=== PATIENT | female | born 1990 | race American Indian/Alaskan Native ===

== ENCOUNTER 2017-11-18 08:47 | Inpatient (IN) | payer MEDICAID ==
[2017-11-18] MEDS ORDERED: ZOFRAN IV PRN (09:52)
[2017-11-18] MEDS ORDERED: SUBLIMAZE IV PRN (09:52)
[2017-11-18] MEDS ORDERED: BRETHINE SUB-Q PRN (09:52)
[2017-11-18] MEDS ORDERED: ePHEDrine SULFATE IV PRN (09:52)
[2017-11-18] MEDS ORDERED: POLYCILLIN/NS 2 GM/100 ML 2 GM/100 ML BAG IV ONE (09:52)
[2017-11-18] MEDS ORDERED: XYLOCAINE 2% INFILTRATI ONE (09:52)
[2017-11-18] MEDS ORDERED: MINERAL OIL PO PRN (09:52)
[2017-11-18] MEDS ORDERED: PITOCin/NS 20 UNIT/1000ML DRIP 20 UNITS/1,000 ML BAG IV SCH (10:00)
--- NOTE | 2017-11-18 10:22 | History and Physical Report ---
History of Present Illness Date of examination: 11/18/17 (IOL for IUGR) Date of admission: 11/18/17 08:47 History of present illness: EDC Confirmation: 11/28/2017 Gestational Age: 25 4/7 weeks Past History : 2 Term Births: 1 Premature Births: 0 Living Children: 1 Para: 1 Mult. Births: 0 Prev : 0 Prev. attempt? 0 Aborta: 0 Elect. Ab: 0 Spont. Ab: 0 Ectopics: 0 # 1 Delivery date: 02/2016 Weeks Gestation: term Delivery type: Anesthesia type: epidural [place] [facility] [place] Sex: Female weight: 7# Comments: denies complications Risk Factors: Smoked Tobacco Use: Never smoker Smokeless Tobacco Use: Never Passive smoke exposure: no Drug use: no HIV high-risk behavior: low risk Alcohol use: no Exercise: no Seatbelt use: 100 % Family History Risk Factors: Family History of [place] in females < 65 years old: no Family History of [place] in males < 55 years old: no Dietary Counseling: pn yes Past Medical History: Abnormal Pap Smear "they have all been abnormal - I don't know what for" Past Surgical History: Breast Lumpectomy: cyst removed from right brest age 15 Past Medical History 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 of genital herpes: no Partner hx. of genital herpes: no Rash, Viral, or Febrile illness since last LMP? no Varicella/Chicken Pox Status: Previous Disease TB Risk: no Genetic History Congenital Heart Defect: Mom: no Dad: no Dana Disease: Mom: no Dad: no Thalassemia Mom: no Dad: no Neural Tube Defect Mom: no Dad: no Down's Syndrome Mom: no Dad: no James-Sachs Mom: no Dad: no Sickle Cell Disease/Trait Mom: no Dad: no Hemophilia Mom: no Dad: no Muscular Dystrophy Mom: no Dad: no Cystic Fibrosis Mom: no Dad: no [place] Chorea Mom: no Dad: no Mental Retardation Mom: no Dad: no Fragile X Mom: no Dad: no Other Genetic/Chromosomal Disorder Mom: no Dad: no Child w/other defect Mom: no Dad: no Enviromental Exposures Xray Exposure: no Medication, drug, or alcohol use since LMP: no Chemical/Other Exposure: no Exposure to Cat Liter: no Hx of Parvovirus (Fifth Disease): no Occupational Exposure to Children: none Active Medications (reviewed today): None Current Allergies: No known allergies Laboratory Results Date/Time Collected: 08/19/2017 Routine Urinalysis Leukocytes: negative Nitrite: negative Urobilinogen: negative Protein: negative Blood: negative Ketone: negative Bilirubin: negative Glucose: negative Urine HCG: positive Review of Systems General Denies fever, chills, sweats, anorexia, fatigue, weakness, malaise, weight loss and sleep disorder. Denies nausea, vomiting, headache, swelling of legs, abdominal pain, vaginal discharge, vaginal bleeding and contractions. Complains of painful sex. Denies vaginal discharge, incontinence, dysuria, hematuria, urinary frequency, amenorrhea, menorrhagia, abnormal vaginal bleeding, pelvic pain, genital sores, decreased libido, painful periods, urinary urgency, hot flashes, vaginal dryness, vaginal itching and vaginal odor. CV Denies chest pains, palpitations, syncope, dyspnea on exertion, orthopnea, PND and peripheral edema. Resp Denies cough, dyspnea at rest, excessive sputum, hemoptysis, wheezing and pleurisy. GI Denies nausea, vomiting, diarrhea, constipation, change in bowel habits, abdominal pain, melena, hematochezia, jaundice, gas/bloating, indigestion/ heartburn, dysphagia and odynophagia. Endo Denies cold intolerance, heat intolerance, polydipsia, polyphagia, polyuria and unusual weight change. Breast Denies left breast lump, right breast lump, nipple discharge, bloody discharge from nipple, breast pain, abnormal mammogram and breast enlargement. MS Denies back pain, joint pain, joint swelling, muscle cramps, muscle weakness, stiffness, arthritis, sciatica, restless legs, leg pain at night and leg pain with exertion. Derm Denies rash, itching, dryness and suspicious lesions. Neuro Denies paralysis, paresthesias, headache, seizures, tremors, vertigo, transient blindness, frequent falls, frequent headaches and difficulty walking. Psych Denies depression, anxiety, irritability and mood swings. Eyes Denies blurring, diplopia, irritation, discharge, vision loss, eye pain and photophobia. ENT Denies earache, ear discharge, tinnitus, decreased hearing, nasal congestion, nosebleeds, sore throat and hoarseness. Allergy Denies urticaria, allergic rash, hay fever and recurrent infections. Heme Denies abnormal bruising, bleeding and enlarged lymph nodes. 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 Vulva/Vagina: No lesions, normal BUS, normal rugae thick plaques of white yeast noted, Cervix: No lesions; no cervical motion tenderness Uterus: normal size and position, midline, mobile Fundal Ht: 25 size: AGA FHT: + Adnexae: no masses or tenderness Rectovaginal: no masses or tenderness Past History - Obstetrical History Expected Date of Delivery: 11/28/17 Actual Gestation: 38 Week(s) 4 Day(s) : 2 Para: 1 Number of Living Children: 1 Medications and Allergies Allergies Allergy/AdvReac Type Severity Reaction Status Date / Time metoclopramide [From Reglan] Allergy Unknown Verified 11/18/17 11:00 Home Medications Medication Instructions Recorded Confirmed Last Taken Type Multivitamin Tablet 1 tab PO DAILY 11/18/17 11/18/17 11/17/17 10:00 History Valacyclovir HCl 500 mg PO DAILY 11/18/17 11/18/17 11/17/17 History Active Meds: Active Medications Ephedrine Sulfate (Ephedrine Sulfate) 10 mg IV Q2M PRN PRN Reason: Hypotension Fentanyl (Sublimaze) 100 mcg IV Q2H PRN PRN Reason: Labor Pain Ampicillin Sodium (Ampicillin/Ns 1 Gm/50 Ml) 1 gm in 50 mls @ 100 mls/hr IV Q4HR OLIVER; Protocol Ampicillin Sodium (Polycillin/Ns 2 Gm/100 Ml) 2 gm in 100 mls @ 100 mls/hr IV ONCE ONE; Protocol Stop: 11/18/17 10:51 Lactated Ringer's (Lactated Ringers) 1,000 mls @ 125 mls/hr IV DIRECT OLIVER Oxytocin/Sodium Chloride (Pitocin/Ns 20 Unit/1000ml Drip) 20 units in 1,000 mls @ 125 mls/hr IV DIRECT OLIVER Oxytocin/Sodium Chloride (Pitocin/Ns 30 Unit/500ml) 30 units in 500 mls @ 4 mls /hr IV Q30M OLIVER; Protocol Lidocaine (Xylocaine 2%) 20 ml INFILTRATI ONCE ONE Stop: 11/18/17 09:53 Mineral Oil (Mineral Oil) 30 ml PO QHS PRN PRN Reason: Constipation Ondansetron HCl (Zofran) 4 mg IV Q8H PRN PRN Reason: Nausea And Vomiting Terbutaline Sulfate (Brethine) 0.25 mg SUB-Q ONCE PRN PRN Reason: Hyperstimulation/Hypertonicity - Physical Exam Breasts: Positive: deferred Cardiovascular: Regular rate, Normal S1, Normal S2 Lungs: Positive: Normal air movement Abdomen: Positive: normal appearance, soft, normal bowel sounds. Negative: distention, tenderness Genitourinary (Female): Positive: normal external genitalia Vulva: both: normal Vagina: Positive: normal moisture. Negative: discharge Cervix: Negative: lesion, discharge Uterus: Positive: normal size, normal contour Adnexa: both: normal Anus/Rectum: Positive: normal perianal skin, heme negative. Negative: rectal mass, hemorrhoids Extremities: Deep Tendon Reflex Grade: Normal +2 - Obstetrical FHR: category 1 Uterine Contraction Monitor Mode: External Cervical Dilatation: 0 (RN called unable to eval cervix posterior) Uterine Contraction Pattern: Absent Uterine Tone Measurement Phase: Resting Results Result Diagrams: 11/18/17 09:15 All other labs normal. Strep Gp B CHARLIE [A] Positive Current OB Labs Blood Type: A (06/27/2017) Rh Type: positive (06/27/2017) Rh Antibody Screen: negative (06/27/2017) Hgb: 11.2 (06/27/2017) Hct: 34.9 (06/27/2017) Platelets: 253 (06/27/2017) Rubella: immune (06/27/2017) RPR: nonreactive (06/27/2017) Hep B Surface Antigen: negative (06/27/2017) HIV: negative (06/27/2017) Quad Screen AFP: negative (06/27/2017) Optional Labs Hepatitis C: neg (06/27/2017) Assessment and Plan 27yo @ 38w4d for IOL due to IUGR. 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 GBS+ will treat per protocol when in labor. All orders in EMR - Patient Problems (1) Group B Streptococcus carrier state affecting Onset Date: ~11/18/17 Current Visit: Yes Status: Acute Plan to address problem: Ampicillin per protocol when in active labor (2) HSV-2 seropositive Current Visit: Yes Status: Acute Plan to address problem: Pt was given RX for prophylactic Valtrex since 35 weeks (3) IUGR (intrauterine growth restriction) Onset Date: Unknown Current Visit: Yes Status: Acute Plan to address problem: As per [facility] recommendation Noted in phone note below IOL recommended. Call placed by: Nancy Roach [facility], November 05, 2017 12:42 PM Call placed to: [facility] Summary of Call: per 's request a call was placed to confirm POC for this pt 1. pt was incorrectly dx with PPROM; it was Oligo which has now resolved last ELENI 12 2. delivery is recommended between 38-39 weeks due to IUGR last eval BPP 02/[address] Information relayed to and Pt. L&D called IOL [facility] for 11-18-17 @ 0868 Pt will be 38w4d that day
[2017-11-18 10:53] LABS: Hematocrit 32.4 % (30.3-42.9); Mean Corpuscular HGB Conc 34 % (30-34); Mean Corpuscular Hemoglobin 29 pg (28-32); Mean Corpuscular Volume 86 fl (79-97); Platelet Count 193 K/mm3 (140-440); Red Blood Count 3.76 M/mm3 (3.65-5.03); Red Cell Distribution Width 14.5 % (13.2-15.2)
[2017-11-18] MEDS: LACTATED RINGERS 1,000 ML IV SCH ×2 (11:45→19:28)
[2017-11-18] MEDS: PITOCin/NS 30 UNIT/500ML 30 UNITS/500 ML BAG IV SCH ×3 (11:57→13:29)
--- NOTE | 2017-11-18 12:06 | Progress Note ---
Assessment and Plan Pitocin just started. RN states she was unable to eval cervix due to position of cervix. Pt aware IOL may take several days. All questions addressed. Cervix midposition. SVE 1-2,50,-2. - Patient Problems (1) Group B Streptococcus carrier state affecting Onset Date: ~11/18/17 Current Visit: Yes Status: Acute (2) HSV-2 seropositive Current Visit: Yes Status: Acute (3) IUGR (intrauterine growth restriction) Onset Date: Unknown Current Visit: Yes Status: Acute Subjective - Subjective Date of service: 11/18/17 (pit just started) Principal diagnosis: IUP 38w4d IOL for IUGR Interval history: EDC Confirmation: 11/28/2017 Gestational Age: 25 4/7 weeks Past History : 2 Term Births: 1 Premature Births: 0 Living Children: 1 Para: 1 Mult. Births: 0 Prev : 0 Prev. attempt? 0 Aborta: 0 Elect. Ab: 0 Spont. Ab: 0 Ectopics: 0 # 1 Delivery date: 02/2016 Weeks Gestation: term Delivery type: Anesthesia type: epidural [place] [facility] [place]: Female weight: 7# Comments: denies complications Risk Factors: Smoked Tobacco Use: Never smoker Smokeless Tobacco Use: Never Passive smoke exposure: no Drug use: no HIV high-risk behavior: low risk Alcohol use: no Exercise: no Seatbelt use: 100 % Family History Risk Factors: Family History of [place] in females < 65 years old: no Family History of [place] in males < 55 years old: no Dietary Counseling: pn yes Past Medical History: Abnormal Pap Smear "they have all been abnormal - I don't know what for" Past Surgical History: Breast Lumpectomy: cyst removed from right brest age 15 Past Medical History 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 of genital herpes: no Partner hx. of genital herpes: no Rash, Viral, or Febrile illness since last LMP? no Varicella/Chicken Pox Status: Previous Disease TB Risk: no Genetic History Congenital Heart Defect: Mom: no Dad: no Dana Disease: Mom: no Dad: no Thalassemia Mom: no Dad: no Neural Tube Defect Mom: no Dad: no Down's Syndrome Mom: no Dad: no James-Sachs Mom: no Dad: no Sickle Cell Disease/Trait Mom: no Dad: no Hemophilia Mom: no Dad: no Muscular Dystrophy Mom: no Dad: no Cystic Fibrosis Mom: no Dad: no [place] Chorea Mom: no Dad: no Mental Retardation Mom: no Dad: no Fragile X Mom: no Dad: no Other Genetic/Chromosomal Disorder Mom: no Dad: no Child w/other defect Mom: no Dad: no Enviromental Exposures Xray Exposure: no Medication, drug, or alcohol use since LMP: no Chemical/Other Exposure: no Exposure to Cat Liter: no Hx of Parvovirus (Fifth Disease): no Occupational Exposure to Children: none Active Medications (reviewed today): None Current Allergies: No known allergies Laboratory Results Date/Time Collected: 08/19/2017 Routine Urinalysis Leukocytes: negative Nitrite: negative Urobilinogen: negative Protein: negative Blood: negative Ketone: negative Bilirubin: negative Glucose: negative Urine HCG: positive Review of Systems General Denies fever, chills, sweats, anorexia, fatigue, weakness, malaise, weight loss and sleep disorder. Denies nausea, vomiting, headache, swelling of legs, abdominal pain, vaginal discharge, vaginal bleeding and contractions. Complains of painful sex. Denies vaginal discharge, incontinence, dysuria, hematuria, urinary frequency, amenorrhea, menorrhagia, abnormal vaginal bleeding, pelvic pain, genital sores, decreased libido, painful periods, urinary urgency, hot flashes, vaginal dryness, vaginal itching and vaginal odor. CV Denies chest pains, palpitations, syncope, dyspnea on exertion, orthopnea, PND and peripheral edema. Resp Denies cough, dyspnea at rest, excessive sputum, hemoptysis, wheezing and pleurisy. GI Denies nausea, vomiting, diarrhea, constipation, change in bowel habits, abdominal pain, melena, hematochezia, jaundice, gas/bloating, indigestion/ heartburn, dysphagia and odynophagia. Endo Denies cold intolerance, heat intolerance, polydipsia, polyphagia, polyuria and unusual weight change. Breast Denies left breast lump, right breast lump, nipple discharge, bloody discharge from nipple, breast pain, abnormal mammogram and breast enlargement. MS Denies back pain, joint pain, joint swelling, muscle cramps, muscle weakness, stiffness, arthritis, sciatica, restless legs, leg pain at night and leg pain with exertion. Derm Denies rash, itching, dryness and suspicious lesions. Neuro Denies paralysis, paresthesias, headache, seizures, tremors, vertigo, transient blindness, frequent falls, frequent headaches and difficulty walking. Psych Denies depression, anxiety, irritability and mood swings. Eyes Denies blurring, diplopia, irritation, discharge, vision loss, eye pain and photophobia. ENT Denies earache, ear discharge, tinnitus, decreased hearing, nasal congestion, nosebleeds, sore throat and hoarseness. Allergy Denies urticaria, allergic rash, hay fever and recurrent infections. Heme Denies abnormal bruising, bleeding and enlarged lymph nodes. 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 Vulva/Vagina: No lesions, normal BUS, normal rugae thick plaques of white yeast noted, Cervix: No lesions; no cervical motion tenderness Uterus: normal size and position, midline, mobile Fundal Ht: 25 size: AGA FHT: + Adnexae: no masses or tenderness Rectovaginal: no masses or tenderness Patient reports: movement normal Objective - Vital Signs Vital Signs: Vital Signs - 12hr 11/18/17 11:15 Temperature 97.6 F Pulse Rate 88 Respiratory 14 Rate Blood Pressure 117/65 [Left] O2 Sat by Pulse 98 Oximetry - Exam Breasts: deferred Cardiovascular: Regular rate Lungs: Normal air movement Abdomen: Present: normal appearance, soft, normal bowel sounds. Absent: distention, tenderness Uterus: Present: normal FHR: auscultation normal, category 1 Uterine Contraction Monitor Mode: External Cervical Dilatation: 1.5 (cervix midposition) Cervical Effacement Percentage: 50 station: -2 Uterine Contraction Pattern: Absent Uterine Tone Measurement Phase: Resting Extremities: normal Deep Tendon Reflex Grade: Normal +2 - Labs Labs: Laboratory Results - last 24 hr 11/18/17 11/18/17 09:15 09:15 WBC 9.9 RBC 3.76 Hgb 11.0 Hct 32.4 MCV 86 MCH 29 MCHC 34 RDW 14.5 Plt Count 193 Blood Type A POSITIVE Antibody Screen Negative
[2017-11-18] MEDS ORDERED: AMPICILLIN/NS 1 GM/50 ML 1 GM/50 ML BAG IV SCH (13:53)
--- NOTE | 2017-11-18 14:47 | Progress Note ---
Assessment and Plan - Patient Problems (1) 38 weeks gestation of Current Visit: Yes Status: Acute (2) Group B Streptococcus carrier state affecting Onset Date: ~11/18/17 Current Visit: Yes Status: Acute (3) HSV-2 seropositive Current Visit: Yes Status: Chronic Plan to address problem: states no outbreak or prodromal symptoms (4) IUGR (intrauterine growth restriction) Onset Date: Unknown Current Visit: Yes Status: Acute Plan to address problem: Serial induction explained, will continue pitocin for now, cervidil tonight if no cervical change and stable. Subjective - Subjective Date of service: 11/18/17 Principal diagnosis: IUP 38w4d IOL for IUGR Patient reports: movement normal Objective - Vital Signs Vital Signs: Vital Signs - 12hr 11/18/17 11/18/17 11/18/17 11:15 13:31 13:36 Temperature 97.6 F Pulse Rate 88 69 83 Respiratory 14 Rate Blood Pressure Blood Pressure 117/65 [Left] O2 Sat by Pulse 98 98 97 Oximetry 11/18/17 11/18/17 11/18/17 13:41 13:43 13:46 Temperature Pulse Rate 75 78 86 Respiratory Rate Blood Pressure 108/52 106/58 Blood Pressure [Left] O2 Sat by Pulse 97 96 Oximetry 11/18/17 11/18/17 11/18/17 13:51 13:56 14:01 Temperature Pulse Rate 68 75 63 Respiratory Rate Blood Pressure Blood Pressure [Left] O2 Sat by Pulse 97 99 98 Oximetry 11/18/17 11/18/17 11/18/17 14:06 14:11 14:16 Temperature Pulse Rate 71 72 72 Respiratory Rate Blood Pressure Blood Pressure [Left] O2 Sat by Pulse 97 98 97 Oximetry 11/18/17 11/18/17 11/18/17 14:21 14:26 14:31 Temperature Pulse Rate 68 80 81 Respiratory Rate Blood Pressure Blood Pressure [Left] O2 Sat by Pulse 98 97 97 Oximetry 11/18/17 11/18/17 14:36 14:41 Temperature Pulse Rate 70 73 Respiratory Rate Blood Pressure Blood Pressure [Left] O2 Sat by Pulse 98 99 Oximetry - Labs Labs: Laboratory Results - last 24 hr 11/18/17 11/18/17 11/18/17 09:15 09:15 09:15 WBC 9.9 RBC 3.76 Hgb 11.0 Hct 32.4 MCV 86 MCH 29 MCHC 34 RDW 14.5 Plt Count 193 RPR Nonreactive Blood Type A POSITIVE Antibody Screen Negative
[2017-11-18] MEDS ORDERED: AMBIEN PO PRN (18:29)
--- NOTE | 2017-11-18 18:31 | Event Note ---
Date: 11/18/17 (pitocin stopped) Pt agrees with plan. Stop Pitocin for today, PM care and diet. Cervidil ordered for 1900. All questions addressed.
[2017-11-18] MEDS ORDERED: CERVIDIL VG ONE (19:00)
--- NOTE | 2017-11-19 07:57 | Progress Note ---
Assessment and Plan patient c/o ctx becoming stronger, fht cat 1. cervidil removed, SVE 3/50/-3, vertex. Plan to start pit this morning for active management. Dr. Lyman aware of patient's status. - Patient Problems (1) 38 weeks gestation of Current Visit: Yes Status: Acute (2) Group B Streptococcus carrier state affecting Onset Date: ~11/18/17 Current Visit: Yes Status: Acute (3) IUGR (intrauterine growth restriction) Onset Date: Unknown Current Visit: Yes Status: Acute Subjective - Subjective Date of service: 11/19/17 Principal diagnosis: IUP 38w5d IOL for IUGR Patient reports: movement normal, contractions, no loss of fluid, no vaginal bleeding Objective - Vital Signs Vital Signs: Vital Signs - 12hr 11/18/17 11/18/17 11/18/17 20:57 20:59 21:44 Temperature 98.4 F Pulse Rate 88 88 84 Respiratory 20 Rate Blood Pressure 99/57 Blood Pressure 99/57 [Left] O2 Sat by Pulse 99 Oximetry 11/18/17 11/18/17 11/18/17 21:49 21:54 21:59 Temperature Pulse Rate 73 74 83 Respiratory Rate Blood Pressure Blood Pressure [Left] O2 Sat by Pulse 97 97 98 Oximetry 11/18/17 11/18/17 11/18/17 22:04 22:09 22:14 Temperature Pulse Rate 80 76 80 Respiratory Rate Blood Pressure Blood Pressure [Left] O2 Sat by Pulse 97 97 96 Oximetry 11/18/17 11/18/17 11/18/17 22:19 22:24 22:29 Temperature Pulse Rate 82 69 78 Respiratory Rate Blood Pressure Blood Pressure [Left] O2 Sat by Pulse 96 97 96 Oximetry 11/18/17 11/18/17 11/18/17 22:34 22:39 22:44 Temperature Pulse Rate 81 68 77 Respiratory Rate Blood Pressure Blood Pressure [Left] O2 Sat by Pulse 96 97 98 Oximetry 11/18/17 11/18/17 11/19/17 22:49 22:54 01:14 Temperature Pulse Rate 71 73 72 Respiratory Rate Blood Pressure Blood Pressure [Left] O2 Sat by Pulse 98 97 99 Oximetry 11/19/17 11/19/17 11/19/17 01:19 01:24 01:29 Temperature Pulse Rate 75 85 65 Respiratory Rate Blood Pressure Blood Pressure [Left] O2 Sat by Pulse 99 99 97 Oximetry 11/19/17 11/19/17 11/19/17 01:34 01:39 01:44 Temperature Pulse Rate 63 67 74 Respiratory Rate Blood Pressure Blood Pressure [Left] O2 Sat by Pulse 98 98 99 Oximetry 11/19/17 11/19/17 11/19/17 01:49 01:54 01:59 Temperature Pulse Rate 91 H 75 79 Respiratory Rate Blood Pressure Blood Pressure [Left] O2 Sat by Pulse 99 99 99 Oximetry 11/19/17 11/19/17 11/19/17 02:01 02:04 02:09 Temperature Pulse Rate 70 68 Respiratory 18 Rate Blood Pressure Blood Pressure [Left] O2 Sat by Pulse 99 98 Oximetry 11/19/17 11/19/17 11/19/17 02:14 02:19 02:24 Temperature Pulse Rate 64 65 67 Respiratory Rate Blood Pressure Blood Pressure [Left] O2 Sat by Pulse 97 97 97 Oximetry 11/19/17 11/19/17 11/19/17 02:29 02:31 02:34 Temperature Pulse Rate 71 63 Respiratory 18 Rate Blood Pressure Blood Pressure [Left] O2 Sat by Pulse 97 98 Oximetry 11/19/17 11/19/17 11/19/17 02:39 02:44 02:49 Temperature Pulse Rate 73 65 71 Respiratory Rate Blood Pressure Blood Pressure [Left] O2 Sat by Pulse 98 97 97 Oximetry 11/19/17 11/19/17 11/19/17 02:54 02:59 03:04 Temperature Pulse Rate 69 71 74 Respiratory Rate Blood Pressure Blood Pressure [Left] O2 Sat by Pulse 97 97 97 Oximetry 11/19/17 11/19/17 11/19/17 03:09 03:14 03:19 Temperature Pulse Rate 67 74 67 Respiratory Rate Blood Pressure Blood Pressure [Left] O2 Sat by Pulse 97 97 98 Oximetry 11/19/17 11/19/17 11/19/17 03:24 03:29 03:34 Temperature Pulse Rate 63 65 61 Respiratory Rate Blood Pressure Blood Pressure [Left] O2 Sat by Pulse 98 98 97 Oximetry 11/19/17 11/19/17 11/19/17 03:39 03:44 03:49 Temperature Pulse Rate 71 81 70 Respiratory Rate Blood Pressure Blood Pressure [Left] O2 Sat by Pulse 97 98 97 Oximetry 11/19/17 11/19/17 11/19/17 03:54 03:59 04:04 Temperature Pulse Rate 69 67 70 Respiratory Rate Blood Pressure Blood Pressure [Left] O2 Sat by Pulse 98 98 98 Oximetry 11/19/17 11/19/17 11/19/17 04:09 04:14 04:19 Temperature Pulse Rate 67 75 99 H Respiratory Rate Blood Pressure Blood Pressure [Left] O2 Sat by Pulse 98 98 97 Oximetry 11/19/17 11/19/17 11/19/17 04:24 04:29 04:34 Temperature Pulse Rate 93 H 78 81 Respiratory Rate Blood Pressure Blood Pressure [Left] O2 Sat by Pulse 97 98 98 Oximetry 11/19/17 11/19/17 11/19/17 04:39 04:44 04:49 Temperature Pulse Rate 67 74 92 H Respiratory Rate Blood Pressure Blood Pressure [Left] O2 Sat by Pulse 98 98 98 Oximetry 11/19/17 11/19/17 11/19/17 04:54 05:03 05:08 Temperature Pulse Rate 76 70 70 Respiratory Rate Blood Pressure Blood Pressure [Left] O2 Sat by Pulse 98 98 98 Oximetry 11/19/17 11/19/17 11/19/17 05:13 05:18 05:23 Temperature Pulse Rate 84 82 77 Respiratory Rate Blood Pressure Blood Pressure [Left] O2 Sat by Pulse 98 97 98 Oximetry 11/19/17 11/19/17 11/19/17 05:28 05:33 05:38 Temperature Pulse Rate 74 76 72 Respiratory Rate Blood Pressure Blood Pressure [Left] O2 Sat by Pulse 98 98 97 Oximetry 11/19/17 11/19/17 11/19/17 05:43 05:48 05:53 Temperature Pulse Rate 74 79 70 Respiratory Rate Blood Pressure Blood Pressure [Left] O2 Sat by Pulse 98 98 97 Oximetry 11/19/17 11/19/17 11/19/17 05:58 06:03 06:08 Temperature Pulse Rate 69 65 69 Respiratory Rate Blood Pressure Blood Pressure [Left] O2 Sat by Pulse 97 96 97 Oximetry 11/19/17 11/19/17 11/19/17 06:13 06:18 06:23 Temperature Pulse Rate 69 74 66 Respiratory Rate Blood Pressure Blood Pressure [Left] O2 Sat by Pulse 96 97 98 Oximetry 11/19/17 11/19/17 11/19/17 06:28 06:33 06:38 Temperature Pulse Rate 89 67 72 Respiratory Rate Blood Pressure Blood Pressure [Left] O2 Sat by Pulse 97 97 97 Oximetry 11/19/17 11/19/17 11/19/17 06:46 06:51 06:56 Temperature Pulse Rate 74 70 71 Respiratory Rate Blood Pressure Blood Pressure [Left] O2 Sat by Pulse 99 98 97 Oximetry 11/19/17 11/19/17 11/19/17 07:01 07:06 07:11 Temperature Pulse Rate 74 77 74 Respiratory Rate Blood Pressure Blood Pressure [Left] O2 Sat by Pulse 98 98 98 Oximetry 11/19/17 11/19/17 11/19/17 07:16 07:21 07:26 Temperature Pulse Rate 65 66 76 Respiratory Rate Blood Pressure Blood Pressure [Left] O2 Sat by Pulse 98 98 100 Oximetry 11/19/17 11/19/17 11/19/17 07:31 07:36 07:41 Temperature Pulse Rate 72 69 73 Respiratory Rate Blood Pressure Blood Pressure [Left] O2 Sat by Pulse 97 98 98 Oximetry 11/19/17 11/19/17 07:44 07:46 Temperature Pulse Rate 75 71 Respiratory Rate Blood Pressure 115/71 Blood Pressure [Left] O2 Sat by Pulse 100 Oximetry - Exam Breasts: normal Cardiovascular: Regular rate Lungs: Clear to auscultation, Normal air movement Abdomen: Present: normal appearance, soft Vulva: both: normal Uterus: Present: normal FHR: auscultation normal, category 1 Uterine Contraction Monitor Mode: External Cervical Dilatation: 3 Cervical Effacement Percentage: 50 station: -3 Uterine Contraction Frequency (min): 3-5 Uterine Contraction Duration: 60 Uterine Contraction Pattern: Regular Uterine Tone Measurement Phase: Contraction Uterine Contraction Intensity: Mild Extremities: normal - Labs Labs: Laboratory Results - last 24 hr 11/18/17 11/18/17 11/18/17 09:15 09:15 09:15 WBC 9.9 RBC 3.76 Hgb 11.0 Hct 32.4 MCV 86 MCH 29 MCHC 34 RDW 14.5 Plt Count 193 RPR Nonreactive Blood Type A POSITIVE Antibody Screen Negative
--- NOTE | 2017-11-19 08:32 | Event Note ---
Date: 11/19/17 Tracing reviewed. Overall reassuring. Will con't with pitocin IOL after pericare.
--- NOTE | 2017-11-19 10:27 | Event Note ---
Date: 11/19/17 cervidil removed @ 4626, pitocin has not yet been started. ARACELI Stanley notified that it needs to be started now.
[2017-11-19] MEDS: PITOCin/NS 30 UNIT/500ML 30 UNITS/500 ML BAG IV SCH (10:42)
[2017-11-19] MEDS ORDERED: POLYCILLIN/NS 2 GM/100 ML 2 GM/100 ML BAG IV ONE (11:00)
--- NOTE | 2017-11-19 13:02 | Progress Note ---
Assessment and Plan plan discussed with patient, recommended AROM and IUPC to better trace ctx and titrate pitocin. Patient agreed with plan, AROM clear odorless fluid. IUPC placed without difficulty and tracing ctx well. RN to continue to titrate pitocin for adequate labor, currently on 12. All questions addressed, pt and her mother verbalize understanding. - Patient Problems (1) 38 weeks gestation of Current Visit: Yes Status: Acute (2) Group B Streptococcus carrier state affecting Onset Date: ~11/18/17 Current Visit: Yes Status: Acute Plan to address problem: Ampicillin q4h until delivery (3) IUGR (intrauterine growth restriction) Onset Date: Unknown Current Visit: Yes Status: Acute Subjective - Subjective Date of service: 11/19/17 Principal diagnosis: IUP 38w5d IOL for IUGR Patient reports: loss of fluid, movement normal, contractions, no vaginal bleeding Objective - Vital Signs Vital Signs: Vital Signs - 12hr 11/19/17 11/19/17 11/19/17 01:14 01:19 01:24 Temperature Pulse Rate 72 75 85 Respiratory Rate Blood Pressure Blood Pressure [Left] O2 Sat by Pulse 99 99 99 Oximetry 11/19/17 11/19/17 11/19/17 01:29 01:34 01:39 Temperature Pulse Rate 65 63 67 Respiratory Rate Blood Pressure Blood Pressure [Left] O2 Sat by Pulse 97 98 98 Oximetry 11/19/17 11/19/17 11/19/17 01:44 01:49 01:54 Temperature Pulse Rate 74 91 H 75 Respiratory Rate Blood Pressure Blood Pressure [Left] O2 Sat by Pulse 99 99 99 Oximetry 11/19/17 11/19/17 11/19/17 01:59 02:01 02:04 Temperature Pulse Rate 79 70 Respiratory 18 Rate Blood Pressure Blood Pressure [Left] O2 Sat by Pulse 99 99 Oximetry 11/19/17 11/19/17 11/19/17 02:09 02:14 02:19 Temperature Pulse Rate 68 64 65 Respiratory Rate Blood Pressure Blood Pressure [Left] O2 Sat by Pulse 98 97 97 Oximetry 11/19/17 11/19/17 11/19/17 02:24 02:29 02:31 Temperature Pulse Rate 67 71 Respiratory 18 Rate Blood Pressure Blood Pressure [Left] O2 Sat by Pulse 97 97 Oximetry 11/19/17 11/19/17 11/19/17 02:34 02:39 02:44 Temperature Pulse Rate 63 73 65 Respiratory Rate Blood Pressure Blood Pressure [Left] O2 Sat by Pulse 98 98 97 Oximetry 11/19/17 11/19/17 11/19/17 02:49 02:54 02:59 Temperature Pulse Rate 71 69 71 Respiratory Rate Blood Pressure Blood Pressure [Left] O2 Sat by Pulse 97 97 97 Oximetry 11/19/17 11/19/17 11/19/17 03:04 03:09 03:14 Temperature Pulse Rate 74 67 74 Respiratory Rate Blood Pressure Blood Pressure [Left] O2 Sat by Pulse 97 97 97 Oximetry 11/19/17 11/19/17 11/19/17 03:19 03:24 03:29 Temperature Pulse Rate 67 63 65 Respiratory Rate Blood Pressure Blood Pressure [Left] O2 Sat by Pulse 98 98 98 Oximetry 11/19/17 11/19/17 11/19/17 03:34 03:39 03:44 Temperature Pulse Rate 61 71 81 Respiratory Rate Blood Pressure Blood Pressure [Left] O2 Sat by Pulse 97 97 98 Oximetry 11/19/17 11/19/17 11/19/17 03:49 03:54 03:59 Temperature Pulse Rate 70 69 67 Respiratory Rate Blood Pressure Blood Pressure [Left] O2 Sat by Pulse 97 98 98 Oximetry 11/19/17 11/19/17 11/19/17 04:04 04:09 04:14 Temperature Pulse Rate 70 67 75 Respiratory Rate Blood Pressure Blood Pressure [Left] O2 Sat by Pulse 98 98 98 Oximetry 11/19/17 11/19/17 11/19/17 04:19 04:24 04:29 Temperature Pulse Rate 99 H 93 H 78 Respiratory Rate Blood Pressure Blood Pressure [Left] O2 Sat by Pulse 97 97 98 Oximetry 11/19/17 11/19/17 11/19/17 04:34 04:39 04:44 Temperature Pulse Rate 81 67 74 Respiratory Rate Blood Pressure Blood Pressure [Left] O2 Sat by Pulse 98 98 98 Oximetry 11/19/17 11/19/17 11/19/17 04:49 04:54 05:03 Temperature Pulse Rate 92 H 76 70 Respiratory Rate Blood Pressure Blood Pressure [Left] O2 Sat by Pulse 98 98 98 Oximetry 11/19/17 11/19/17 11/19/17 05:08 05:13 05:18 Temperature Pulse Rate 70 84 82 Respiratory Rate Blood Pressure Blood Pressure [Left] O2 Sat by Pulse 98 98 97 Oximetry 11/19/17 11/19/17 11/19/17 05:23 05:28 05:33 Temperature Pulse Rate 77 74 76 Respiratory Rate Blood Pressure Blood Pressure [Left] O2 Sat by Pulse 98 98 98 Oximetry 11/19/17 11/19/17 11/19/17 05:38 05:43 05:48 Temperature Pulse Rate 72 74 79 Respiratory Rate Blood Pressure Blood Pressure [Left] O2 Sat by Pulse 97 98 98 Oximetry 11/19/17 11/19/17 11/19/17 05:53 05:58 06:03 Temperature Pulse Rate 70 69 65 Respiratory Rate Blood Pressure Blood Pressure [Left] O2 Sat by Pulse 97 97 96 Oximetry 11/19/17 11/19/17 11/19/17 06:08 06:13 06:18 Temperature Pulse Rate 69 69 74 Respiratory Rate Blood Pressure Blood Pressure [Left] O2 Sat by Pulse 97 96 97 Oximetry 11/19/17 11/19/17 11/19/17 06:23 06:28 06:33 Temperature Pulse Rate 66 89 67 Respiratory Rate Blood Pressure Blood Pressure [Left] O2 Sat by Pulse 98 97 97 Oximetry 11/19/17 11/19/17 11/19/17 06:38 06:46 06:51 Temperature Pulse Rate 72 74 70 Respiratory Rate Blood Pressure Blood Pressure [Left] O2 Sat by Pulse 97 99 98 Oximetry 11/19/17 11/19/17 11/19/17 06:56 07:01 07:06 Temperature Pulse Rate 71 74 77 Respiratory Rate Blood Pressure Blood Pressure [Left] O2 Sat by Pulse 97 98 98 Oximetry 11/19/17 11/19/17 11/19/17 07:11 07:16 07:21 Temperature Pulse Rate 74 65 66 Respiratory Rate Blood Pressure Blood Pressure [Left] O2 Sat by Pulse 98 98 98 Oximetry 11/19/17 11/19/17 11/19/17 07:26 07:31 07:36 Temperature Pulse Rate 76 72 69 Respiratory Rate Blood Pressure Blood Pressure [Left] O2 Sat by Pulse 100 97 98 Oximetry 11/19/17 11/19/17 11/19/17 07:41 07:44 07:45 Temperature 98.1 F Pulse Rate 73 75 80 Respiratory 18 Rate Blood Pressure 115/71 Blood Pressure 115/71 [Left] O2 Sat by Pulse 98 99 Oximetry 11/19/17 11/19/17 11/19/17 07:46 07:47 08:05 Temperature Pulse Rate 71 71 Respiratory Rate Blood Pressure Blood Pressure [Left] O2 Sat by Pulse 100 89 98 Oximetry 11/19/17 11/19/17 11/19/17 08:10 08:15 08:20 Temperature Pulse Rate 67 94 H 71 Respiratory Rate Blood Pressure Blood Pressure [Left] O2 Sat by Pulse 98 99 98 Oximetry 11/19/17 11/19/17 11/19/17 08:25 08:30 08:35 Temperature Pulse Rate 71 75 84 Respiratory Rate Blood Pressure Blood Pressure [Left] O2 Sat by Pulse 99 98 97 Oximetry 11/19/17 11/19/17 11/19/17 08:40 08:45 08:50 Temperature Pulse Rate 91 H 71 79 Respiratory Rate Blood Pressure Blood Pressure [Left] O2 Sat by Pulse 99 98 98 Oximetry 11/19/17 11/19/17 11/19/17 08:55 09:00 09:05 Temperature Pulse Rate 71 85 90 Respiratory Rate Blood Pressure Blood Pressure [Left] O2 Sat by Pulse 98 98 98 Oximetry 11/19/17 11/19/17 12:15 12:20 Temperature 97.8 F Pulse Rate 71 Respiratory 18 Rate Blood Pressure 105/68 Blood Pressure [Left] O2 Sat by Pulse Oximetry - Exam Breasts: normal Cardiovascular: Regular rate Lungs: Clear to auscultation, Normal air movement Abdomen: Present: normal appearance, soft Vulva: both: normal Uterus: Present: normal FHR: auscultation normal, category 1 Uterine Contraction Monitor Mode: Internal Cervical Dilatation: 3.5 Cervical Effacement Percentage: 80 station: -1 Uterine Contraction Frequency (min): 3-5 Uterine Contraction Duration: 60 Uterine Contraction Pattern: Regular Uterine Tone Measurement Phase: Contraction Uterine Contraction Intensity: Mild Extremities: normal Deep Tendon Reflex Grade: Normal +2
[2017-11-19] MEDS: LACTATED RINGERS 1,000 ML IV SCH ×2 (14:05→15:00)
[2017-11-19] MEDS ORDERED: AMPICILLIN/NS 1 GM/50 ML 1 GM/50 ML BAG IV SCH (15:00)
[2017-11-19] MEDS ORDERED: ePHEDrine SULFATE IV PRN (15:35)
[2017-11-19] MEDS ORDERED: NARCAN 2 MG/2 ML IV PRN (15:35)
--- NOTE | 2017-11-19 15:35 | Anesthesia Consultation ---
Anesthesia Consult and Med Hx Date of service: 11/19/17 - Airway Anesthetic Teeth Evaluation: Good ROM Head & Neck: Adequate Mental/Hyoid Distance: Adequate Mallampati Class: Class II Intubation Access Assessment: Probably Good - Pre-Operative Health Status ASA Pre-Surgery Classification: ASA2 Proposed Anesthetic Plan: Epidural, Spinal - Pulmonary Hx Asthma: No COPD: No Hx Pneumonia: No - Cardiovascular System Hx Hypertension: No - Central Nervous System Hx Seizures: No Hx Psychiatric Problems: No - Endocrine Hx Renal Disease: No Hx End Stage Renal Disease: No Hx Hypothyroidism: No Hx Hyperthyroidism: No - Hematic Hx Anemia: No Hx Sickle Cell Disease: No - Other Systems Hx Alcohol Use: No - Additional Comments Anesthesia Medical History Comments: IUGR
[2017-11-19] MEDS ORDERED: fentaNYL-BUPIV 2 MCG/ML-0.125% 200 MCG/100 ML BAG EPIDURAL SCH (16:00)
--- NOTE | 2017-11-19 17:32 | Progress Note ---
Assessment and Plan Patient is comfortable with epidural. SVE /-1, cervix almost gone posteriorly, most of her cervix is anterior. OP presentation suspected. patient turned to left side with right leg placed in stirrup. ctx noted to be coupling, fht with early decels noted. Will continue to monitor closely. Anticipate . Dr. Lyman aware of patient's status. - Patient Problems (1) 38 weeks gestation of Current Visit: Yes Status: Acute (2) Group B Streptococcus carrier state affecting Onset Date: ~11/18/17 Current Visit: Yes Status: Acute Plan to address problem: adequate treatment of GBS prophylaxis (3) IUGR (intrauterine growth restriction) Onset Date: Unknown Current Visit: Yes Status: Acute Subjective - Subjective Date of service: 11/19/17 Principal diagnosis: IUP 38w5d IOL for IUGR Patient reports: new complaints (Pt comfortable with epidural), loss of fluid, movement normal, no vaginal bleeding Objective - Vital Signs Vital Signs: Vital Signs - 12hr 11/19/17 11/19/17 11/19/17 05:33 05:38 05:43 Temperature Pulse Rate 76 72 74 Respiratory Rate Blood Pressure Blood Pressure [Left] O2 Sat by Pulse 98 97 98 Oximetry 11/19/17 11/19/17 11/19/17 05:48 05:53 05:58 Temperature Pulse Rate 79 70 69 Respiratory Rate Blood Pressure Blood Pressure [Left] O2 Sat by Pulse 98 97 97 Oximetry 11/19/17 11/19/17 11/19/17 06:03 06:08 06:13 Temperature Pulse Rate 65 69 69 Respiratory Rate Blood Pressure Blood Pressure [Left] O2 Sat by Pulse 96 97 96 Oximetry 11/19/17 11/19/17 11/19/17 06:18 06:23 06:28 Temperature Pulse Rate 74 66 89 Respiratory Rate Blood Pressure Blood Pressure [Left] O2 Sat by Pulse 97 98 97 Oximetry 11/19/17 11/19/17 11/19/17 06:33 06:38 06:46 Temperature Pulse Rate 67 72 74 Respiratory Rate Blood Pressure Blood Pressure [Left] O2 Sat by Pulse 97 97 99 Oximetry 11/19/17 11/19/17 11/19/17 06:51 06:56 07:01 Temperature Pulse Rate 70 71 74 Respiratory Rate Blood Pressure Blood Pressure [Left] O2 Sat by Pulse 98 97 98 Oximetry 11/19/17 11/19/17 11/19/17 07:06 07:11 07:16 Temperature Pulse Rate 77 74 65 Respiratory Rate Blood Pressure Blood Pressure [Left] O2 Sat by Pulse 98 98 98 Oximetry 11/19/17 11/19/17 11/19/17 07:21 07:26 07:31 Temperature Pulse Rate 66 76 72 Respiratory Rate Blood Pressure Blood Pressure [Left] O2 Sat by Pulse 98 100 97 Oximetry 11/19/17 11/19/17 11/19/17 07:36 07:41 07:44 Temperature Pulse Rate 69 73 75 Respiratory Rate Blood Pressure 115/71 Blood Pressure [Left] O2 Sat by Pulse 98 98 Oximetry 11/19/17 11/19/17 11/19/17 07:45 07:46 07:47 Temperature 98.1 F Pulse Rate 80 71 Respiratory 18 Rate Blood Pressure Blood Pressure 115/71 [Left] O2 Sat by Pulse 99 100 89 Oximetry 11/19/17 11/19/17 11/19/17 08:05 08:10 08:15 Temperature Pulse Rate 71 67 94 H Respiratory Rate Blood Pressure Blood Pressure [Left] O2 Sat by Pulse 98 98 99 Oximetry 11/19/17 11/19/17 11/19/17 08:20 08:25 08:30 Temperature Pulse Rate 71 71 75 Respiratory Rate Blood Pressure Blood Pressure [Left] O2 Sat by Pulse 98 99 98 Oximetry 11/19/17 11/19/17 11/19/17 08:35 08:40 08:45 Temperature Pulse Rate 84 91 H 71 Respiratory Rate Blood Pressure Blood Pressure [Left] O2 Sat by Pulse 97 99 98 Oximetry 11/19/17 11/19/17 11/19/17 08:50 08:55 09:00 Temperature Pulse Rate 79 71 85 Respiratory Rate Blood Pressure Blood Pressure [Left] O2 Sat by Pulse 98 98 98 Oximetry 11/19/17 11/19/17 11/19/17 09:05 12:15 12:20 Temperature 97.8 F Pulse Rate 90 71 Respiratory 18 Rate Blood Pressure 105/68 Blood Pressure [Left] O2 Sat by Pulse 98 Oximetry 11/19/17 11/19/17 11/19/17 14:23 14:28 14:33 Temperature Pulse Rate 98 H 74 74 Respiratory Rate Blood Pressure Blood Pressure [Left] O2 Sat by Pulse 99 100 99 Oximetry 11/19/17 11/19/17 11/19/17 14:38 14:43 14:48 Temperature Pulse Rate 90 96 H 96 H Respiratory Rate Blood Pressure Blood Pressure [Left] O2 Sat by Pulse 100 100 100 Oximetry 11/19/17 11/19/17 11/19/17 14:53 15:07 15:10 Temperature Pulse Rate 91 H 93 H 92 H Respiratory Rate Blood Pressure Blood Pressure [Left] O2 Sat by Pulse 100 98 93 Oximetry 11/19/17 11/19/17 11/19/17 15:12 15:14 15:16 Temperature Pulse Rate 90 94 H 92 H Respiratory Rate Blood Pressure 126/66 131/68 Blood Pressure [Left] O2 Sat by Pulse 100 Oximetry 11/19/17 11/19/17 11/19/17 15:17 15:18 15:20 Temperature Pulse Rate 92 H 103 H 87 Respiratory Rate Blood Pressure 123/63 119/62 Blood Pressure [Left] O2 Sat by Pulse 100 Oximetry 11/19/17 11/19/17 11/19/17 15:22 15:23 15:25 Temperature Pulse Rate 70 71 62 Respiratory Rate Blood Pressure 111/62 117/68 Blood Pressure [Left] O2 Sat by Pulse 100 Oximetry 11/19/17 11/19/17 11/19/17 15:27 15:29 15:31 Temperature Pulse Rate 75 69 60 Respiratory Rate Blood Pressure 124/68 111/76 117/72 Blood Pressure [Left] O2 Sat by Pulse 100 Oximetry 11/19/17 11/19/17 11/19/17 15:32 15:33 15:35 Temperature Pulse Rate 60 69 70 Respiratory Rate Blood Pressure 108/65 111/66 Blood Pressure [Left] O2 Sat by Pulse 99 Oximetry 11/19/17 11/19/17 11/19/17 15:36 15:37 15:38 Temperature Pulse Rate 63 62 58 L Respiratory Rate Blood Pressure 106/66 106/62 Blood Pressure [Left] O2 Sat by Pulse 99 Oximetry 11/19/17 11/19/17 11/19/17 15:40 15:42 15:43 Temperature Pulse Rate 62 58 L 55 L Respiratory Rate Blood Pressure 106/63 106/65 Blood Pressure [Left] O2 Sat by Pulse 100 Oximetry 11/19/17 11/19/17 11/19/17 15:44 15:46 15:47 Temperature Pulse Rate 60 55 L 57 L Respiratory Rate Blood Pressure 107/65 100/57 Blood Pressure [Left] O2 Sat by Pulse 100 Oximetry 11/19/17 11/19/17 11/19/17 15:48 15:51 15:52 Temperature Pulse Rate 56 L 60 58 L Respiratory Rate Blood Pressure 101/60 99/59 Blood Pressure [Left] O2 Sat by Pulse 100 Oximetry 11/19/17 11/19/17 11/19/17 15:53 15:54 15:57 Temperature Pulse Rate 61 61 59 L Respiratory Rate Blood Pressure 98/60 98/58 98/59 Blood Pressure [Left] O2 Sat by Pulse 100 Oximetry 11/19/17 11/19/17 11/19/17 15:59 16:00 16:02 Temperature 98.0 F Pulse Rate 63 56 L 60 Respiratory 20 Rate Blood Pressure 97/59 98/59 103/67 Blood Pressure [Left] O2 Sat by Pulse 99 Oximetry 11/19/17 11/19/17 11/19/17 16:04 16:06 16:07 Temperature Pulse Rate 55 L 53 L 55 L Respiratory Rate Blood Pressure 102/65 101/63 Blood Pressure [Left] O2 Sat by Pulse 100 Oximetry 11/19/17 11/19/17 11/19/17 16:08 16:11 16:12 Temperature Pulse Rate 53 L 60 61 Respiratory Rate Blood Pressure 103/68 104/66 108/67 Blood Pressure [Left] O2 Sat by Pulse 100 Oximetry 11/19/17 11/19/17 11/19/17 16:15 16:16 16:17 Temperature Pulse Rate 54 L 61 60 Respiratory Rate Blood Pressure 107/67 113/71 Blood Pressure [Left] O2 Sat by Pulse 100 Oximetry 11/19/17 11/19/17 11/19/17 16:18 16:21 16:22 Temperature Pulse Rate 54 L 53 L 65 Respiratory Rate Blood Pressure 111/70 110/71 110/69 Blood Pressure [Left] O2 Sat by Pulse 100 Oximetry 11/19/17 11/19/17 11/19/17 16:24 16:27 16:28 Temperature Pulse Rate 67 57 L 55 L Respiratory Rate Blood Pressure 109/73 111/72 110/69 Blood Pressure [Left] O2 Sat by Pulse 100 Oximetry 11/19/17 11/19/17 11/19/17 16:31 16:32 16:35 Temperature Pulse Rate 76 57 L 70 Respiratory Rate Blood Pressure 115/74 113/70 126/68 Blood Pressure [Left] O2 Sat by Pulse 100 Oximetry 11/19/17 11/19/17 11/19/17 16:37 16:39 16:41 Temperature Pulse Rate 74 59 L 60 Respiratory Rate Blood Pressure 123/74 116/73 112/70 Blood Pressure [Left] O2 Sat by Pulse 100 Oximetry 11/19/17 11/19/17 11/19/17 16:42 16:43 16:45 Temperature Pulse Rate 93 H 67 73 Respiratory Rate Blood Pressure 114/71 114/69 Blood Pressure [Left] O2 Sat by Pulse 100 Oximetry 11/19/17 11/19/17 11/19/17 16:47 16:49 16:51 Temperature Pulse Rate 60 69 63 Respiratory Rate Blood Pressure 108/67 112/73 97/54 Blood Pressure [Left] O2 Sat by Pulse 99 Oximetry 11/19/17 11/19/17 11/19/17 16:52 16:53 16:55 Temperature Pulse Rate 69 68 68 Respiratory Rate Blood Pressure 123/65 113/70 Blood Pressure [Left] O2 Sat by Pulse 98 Oximetry 11/19/17 11/19/17 11/19/17 16:57 16:58 17:02 Temperature Pulse Rate 64 71 73 Respiratory Rate Blood Pressure 101/61 106/67 Blood Pressure [Left] O2 Sat by Pulse 98 99 Oximetry 11/19/17 11/19/17 11/19/17 17:07 17:12 17:15 Temperature Pulse Rate 65 65 65 Respiratory Rate Blood Pressure 98/53 Blood Pressure [Left] O2 Sat by Pulse 99 100 Oximetry 11/19/17 11/19/17 11/19/17 17:17 17:20 17:22 Temperature Pulse Rate 65 59 L 57 L Respiratory Rate Blood Pressure 101/60 Blood Pressure [Left] O2 Sat by Pulse 100 100 Oximetry 11/19/17 17:27 Temperature Pulse Rate 57 L Respiratory Rate Blood Pressure Blood Pressure [Left] O2 Sat by Pulse 100 Oximetry - Exam Breasts: normal Cardiovascular: Regular rate Lungs: Clear to auscultation, Normal air movement Abdomen: Present: normal appearance, soft Vulva: both: normal Uterus: Present: normal FHR: category 2 Uterine Contraction Monitor Mode: Internal Cervical Dilatation: 6 Cervical Effacement Percentage: 90 station: -1 Uterine Contraction Pattern: Irregular (coupling) Uterine Tone Measurement Phase: Contraction Uterine Contraction Intensity: Strong/Firm
--- NOTE | 2017-11-19 20:04 | Procedure Note ---
OB Delivery Note - Delivery Date of Delivery: 11/19/17 ( female) Modeler: BRYAN LOPEZ Estimated blood loss: 200cc - Vaginal Delivery presentation: vertex Delivery position: OA Intrapartum events: none, mult.variable deceleratio Delivery induction: cervidil Delivery augmentation: rupture of membranes, pitocin Delivery monitor: external FHT, internal FHT Route of delivery: Delivery placenta: spontaneous Delivery cord: nuchal cord, 3 umbilical vessels Episiotomy: none Delivery laceration: none Anesthesia: epidural Delivery comments: female del over intact perineum, tight nuchal cord sumersaulted through. placed skin to skin, 3 vessel cord clamped and cut. Placenta del intact and complete. pit to IVF. Fudus firm, bleeding small. no lacerations to repair. Apgars 8/9, EBL 200. Mother and remain LDR stable. - Infant A at 1 minute: 8 at 5 minutes: 9 Infant Gender: Female
[2017-11-19] MEDS ORDERED: TUCKS PAD TP PRN (21:39)
[2017-11-19] MEDS ORDERED: LANSINOH TP PRN (21:39)
[2017-11-19] MEDS ORDERED: MILK OF MAGNESIA PO PRN (21:39)
[2017-11-19] MEDS ORDERED: PHENERGAN PO PRN (21:39)
[2017-11-19] MEDS ORDERED: SODIUM CHLORIDE FLUSH SYRINGE 10 ML IV PRN (21:39)
[2017-11-19] MEDS ORDERED: DERMOPLAST TP PRN (21:39)
[2017-11-19] MEDS ORDERED: PITOCin/NS 20 UNIT/1000ML DRIP 20 UNITS/1,000 ML BAG IV SCH (21:39)
[2017-11-19] MEDS ORDERED: BENADRYL PO PRN (21:39)
[2017-11-19] MEDS ORDERED: TYLENOL PO PRN (21:39)
[2017-11-19] MEDS ORDERED: DULCOLAX PR PRN (21:39)
[2017-11-19] MEDS: MOTRIN PO SCH (23:35)
[2017-11-19] MEDS: COLACE PO SCH (23:35)
[2017-11-20] MEDS: MOTRIN PO SCH ×3 (05:59→18:46)
--- NOTE | 2017-11-20 06:25 | Progress Note ---
Assessment and Plan Pt resting w/o complaint Requests d/c today if possible. VSS FF below umb Lochia small Perineum intact H&H pending No s/sx of anemia. Doing well s/p vag delivery P: d/c today if possible Instructions given Pt will f/u in office in 4 weeks. - Patient Problems (1) Group B Streptococcus carrier state affecting Onset Date: ~11/18/17 Current Visit: Yes Status: Acute Plan to address problem: GBS treated adequately prior to delivery Subjective - Subjective Date of service: 11/20/17 (pt requests d/c today if possible) Principal diagnosis: s/p Interval history: EDC Confirmation: 11/28/2017 Gestational Age: 25 4/7 weeks Past History : 2 Term Births: 1 Premature Births: 0 Living Children: 1 Para: 1 Mult. Births: 0 Prev : 0 Prev. attempt? 0 Aborta: 0 Elect. Ab: 0 Spont. Ab: 0 Ectopics: 0 # 1 Delivery date: 02/2016 Weeks Gestation: term Delivery type: Anesthesia type: epidural Delivery location: [facility] [place] Infant Sex: Female weight: 7# Comments: denies complications Risk Factors: Smoked Tobacco Use: Never smoker Smokeless Tobacco Use: Never Passive smoke exposure: no Drug use: no HIV high-risk behavior: low risk Alcohol use: no Exercise: no Seatbelt use: 100 % Family History Risk Factors: Family History of WI in females < 65 years old: no Family History of WI in males < 55 years old: no Dietary Counseling: pn yes Past Medical History: Abnormal Pap Smear "they have all been abnormal - I don't know what for" Past Surgical History: Breast Lumpectomy: cyst removed from right brest age 15 Past Medical History Surgery (Non-wire stretcher): Breast Lumpectomy: cyst removed from right brest age 15 Abnormal PAP: positive Social 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 of genital herpes: no Partner hx. of genital herpes: no Rash, Viral, or Febrile illness since last LMP? no Varicella/Chicken Pox Status: Previous Disease TB Risk: no Genetic History Congenital Heart Defect: Mom: no Dad: no Dana Disease: Mom: no Dad: no Thalassemia Mom: no Dad: no Neural Tube Defect Mom: no Dad: no Down's Syndrome Mom: no Dad: no James-Sachs Mom: no Dad: no Sickle Cell Disease/Trait Mom: no Dad: no Hemophilia Mom: no Dad: no Muscular Dystrophy Mom: no Dad: no Cystic Fibrosis Mom: no Dad: no [place] Chorea Mom: no Dad: no Mental Retardation Mom: no Dad: no Fragile X Mom: no Dad: no Other Genetic/Chromosomal Disorder Mom: no Dad: no Child w/other defect Mom: no Dad: no Enviromental Exposures Xray Exposure: no Medication, drug, or alcohol use since LMP: no Chemical/Other Exposure: no Exposure to Cat Liter: no Hx of Parvovirus (Fifth Disease): no Occupational Exposure to Children: none Active Medications (reviewed today): None Current Allergies: No known allergies Laboratory Results Date/Time Collected: 08/19/2017 Routine Urinalysis Leukocytes: negative Nitrite: negative Urobilinogen: negative Protein: negative Blood: negative Ketone: negative Bilirubin: negative Glucose: negative Urine HCG: positive Review of Systems General Denies fever, chills, sweats, anorexia, fatigue, weakness, malaise, weight loss and sleep disorder. Denies nausea, vomiting, headache, swelling of legs, abdominal pain, vaginal discharge, vaginal bleeding and contractions. Complains of painful sex. Denies vaginal discharge, incontinence, dysuria, hematuria, urinary frequency, amenorrhea, menorrhagia, abnormal vaginal bleeding, pelvic pain, genital sores, decreased libido, painful periods, urinary urgency, hot flashes, vaginal dryness, vaginal itching and vaginal odor. CV Denies chest pains, palpitations, syncope, dyspnea on exertion, orthopnea, PND and peripheral edema. Resp Denies cough, dyspnea at rest, excessive sputum, hemoptysis, wheezing and pleurisy. GI Denies nausea, vomiting, diarrhea, constipation, change in bowel habits, abdominal pain, melena, hematochezia, jaundice, gas/bloating, indigestion/ heartburn, dysphagia and odynophagia. Endo Denies cold intolerance, heat intolerance, polydipsia, polyphagia, polyuria and unusual weight change. Breast Denies left breast lump, right breast lump, nipple discharge, bloody discharge from nipple, breast pain, abnormal mammogram and breast enlargement. MS Denies back pain, joint pain, joint swelling, muscle cramps, muscle weakness, stiffness, arthritis, sciatica, restless legs, leg pain at night and leg pain with exertion. Derm Denies rash, itching, dryness and suspicious lesions. Neuro Denies paralysis, paresthesias, headache, seizures, tremors, vertigo, transient blindness, frequent falls, frequent headaches and difficulty walking. Psych Denies depression, anxiety, irritability and mood swings. Eyes Denies blurring, diplopia, irritation, discharge, vision loss, eye pain and photophobia. ENT Denies earache, ear discharge, tinnitus, decreased hearing, nasal congestion, nosebleeds, sore throat and hoarseness. Allergy Denies urticaria, allergic rash, hay fever and recurrent infections. Heme Denies abnormal bruising, bleeding and enlarged lymph nodes. PHYSICAL EXAM HEENT: PERRLA, normal conjunctiva, external nose and nasal mucosa normal, oropharynx clear Neck/Thyroid: supple, thyroid normal Skin no significant abnormal lesions or rashes Chest: respiratory effort normal, clear to auscultation Breasts: normal without skin changes or masses CV: regular, normal S1-S2, no murmur, no rub, no gallop Abdomen: normal bowel sounds, soft, nontender, no HSM Musculoskeletal: grossly normal ROM in joints, no joint tenderness or muscle weakness Neuro: grossly normal DTRs, sensation, strength, cranial nerves Extremities: no clubbing, cyanosis, or edema [employer] Exams Vulva/Vagina: No lesions, normal BUS, normal rugae thick plaques of white yeast noted, Cervix: No lesions; no cervical motion tenderness Uterus: normal size and position, midline, mobile Fundal Ht: 25 size: AGA FHT: + Adnexae: no masses or tenderness Rectovaginal: no masses or tenderness Patient reports: appetite normal, voiding normally, pain well controlled, ambulating normally : doing well Objective - Vital Signs Latest vital signs: Vital Signs Temp Pulse Resp BP BP Pulse Ox 11/20/17 05:59 20 11/20/17 01:25 98.4 F 73 20 109/66 11/19/17 23:35 20 11/19/17 21:55 98.5 F 78 20 113/80 11/19/17 21:09 77 109/58 11/19/17 20:54 83 125/59 05/02/18 20:24 90 118/57 0518 20:09 78 119/59 05/18 19:57 127 H 100 0518 19:52 94 H 100 0518 19:47 92 H 100 0518 19:45 97 H 115/67 0518 19:42 78 100 05/18 19:37 82 100 050218 19:32 75 100 050218 19:31 70 115/59 0518 19:27 68 100 050218 19:22 74 100 050218 19:21 98.7 F 18 11/19/17 19:17 66 100 0518 19:15 67 100/57 05 19:12 72 100 11/19/17 19:07 68 100 0518 19:02 70 100 05 19:00 70 105/58 0518 18:57 98.5 F 62 20 100 0518 18:52 77 100 0518 18:47 69 100 0518 18:46 79 101/54 0518 18:42 74 100 050218 18:37 74 100 0518 18:32 76 100 0518 18:30 77 91/55 0518 18:27 63 100 0518 18:22 64 100 0518 18:17 79 100 050218 18:16 78 101/56 050218 18:12 70 100 050218 18:07 85 100 050218 18:02 81 100 050218 18:01 67 101/63 050218 17:57 61 100 05/0218 17:52 71 100 05/0218 17:47 66 100 05/0218 17:46 57 L 107/59 050218 17:42 58 L 100 05/0218 17:37 60 100 05/0218 17:32 61 100 05/0218 17:30 69 104/66 05/02/18 17:27 57 L 100 05/0218 17:22 57 L 100 050218 17:20 59 L 101/60 05/02/18 17:17 65 100 05/02/18 17:15 65 98/53 05/02/18 17:12 65 100 05/02/18 17:07 65 99 05/02/18 17:02 73 99 05/02/18 16:58 71 106/67 05/02/18 16:57 64 101/61 98 05/02/18 16:55 68 113/70 05/02/18 16:53 68 123/65 05/02/18 16:52 69 98 05/02/18 16:51 63 97/54 05/02/18 16:49 69 112/73 05/02/18 16:47 60 108/67 99 05/02/18 16:45 73 114/69 05/02/18 16:43 67 114/71 05/02/18 16:42 93 H 100 05/02/18 16:41 60 112/70 05/02/18 16:39 59 L 116/73 05/02/18 16:37 74 123/74 100 05/02/18 16:35 70 126/68 05/02/18 16:32 57 L 113/70 100 05/02/18 16:31 76 115/74 05/02/18 16:28 55 L 110/69 05/02/18 16:27 57 L 111/72 100 05/02/18 16:24 67 109/73 05/02/18 16:22 65 110/69 100 05/02/18 16:21 53 L 110/71 05/02/18 16:18 54 L 111/70 05/02/18 16:17 60 100 05/02/18 16:16 61 113/71 05/02/18 16:15 54 L 107/67 05/02/18 16:12 61 108/67 100 05/02/18 16:11 60 104/66 05/02/18 16:08 53 L 103/68 05/02/18 16:07 55 L 100 05/02/18 16:06 53 L 101/63 05/02/18 16:04 55 L 102/65 05/02/18 16:02 98.0 F 60 20 103/67 99 05/02/18 16:00 56 L 98/59 05/02/18 15:59 63 97/59 05/02/18 15:57 59 L 98/59 100 05/02/18 15:54 61 98/58 05/02/18 15:53 61 98/60 05/02/18 15:52 58 L 100 05/02/18 15:51 60 99/59 05/02/18 15:48 56 L 101/60 05/02/18 15:47 57 L 100 05/02/18 15:46 55 L 100/57 05/02/18 15:44 60 107/65 05/02/18 15:43 55 L 106/65 05/02/18 15:42 58 L 100 05/02/18 15:40 62 106/63 05/02/18 15:38 58 L 106/62 05/02/18 15:37 62 99 05/02/18 15:36 63 106/66 05/02/18 15:35 70 111/66 05/02/18 15:33 69 108/65 05/02/18 15:32 60 99 05/02/18 15:31 60 117/72 05/02/18 15:29 69 111/76 05/02/18 15:27 75 124/68 100 05/02/18 15:25 62 117/68 05/02/18 15:23 71 111/62 05/02/18 15:22 70 100 05/02/18 15:20 87 119/62 05/02/18 15:18 103 H 123/63 05/02/18 15:17 92 H 100 05/02/18 15:16 92 H 131/68 05/02/18 15:14 94 H 126/66 05/02/18 15:12 90 100 05/02/18 15:10 92 H 93 05/02/18 15:07 93 H 98 05/02/18 14:53 91 H 100 05/02/18 14:48 96 H 100 05/02/18 14:43 96 H 100 05/02/18 14:38 90 100 05/02/18 14:33 74 99 05/02/18 14:28 74 100 05/02/18 14:23 98 H 99 05/02/18 12:20 71 105/68 05/02/18 12:15 97.8 F 18 05/02/18 09:05 90 98 05/02/18 09:00 85 98 05/02/18 08:55 71 98 05/02/18 08:50 79 98 11/19/17 08:45 71 98 11/19/17 08:40 91 H 99 11/19/17 08:35 84 97 11/19/17 08:30 75 98 11/19/17 08:25 71 99 11/19/17 08:20 71 98 11/19/17 08:15 94 H 99 11/19/17 08:10 67 98 11/19/17 08:05 71 98 11/19/17 07:47 89 11/19/17 07:46 71 100 11/19/17 07:45 98.1 F 80 18 115/71 99 11/19/17 07:44 75 115/71 11/19/17 07:41 73 98 11/19/17 07:36 69 98 11/19/17 07:31 72 97 11/19/17 07:26 76 100 11/19/17 07:21 66 98 11/19/17 07:16 65 98 11/19/17 07:11 74 98 11/19/17 07:06 77 98 11/19/17 07:01 74 98 11/19/17 06:56 71 97 11/19/17 06:51 70 98 11/19/17 06:46 74 99 11/19/17 06:38 72 97 11/19/17 06:33 67 97 11/19/17 06:28 89 97 Intake and Output 11/19/17 11/19/17 11/20/17 14:59 22:59 06:59 Intake Total 1262.167 487.116 240 Output Total 800 400 Balance 1262.167 -312.884 -160 Intake: IV 1262.167 247.116 Lactated Ringers 1,000 ml 1000 114.583 @ 125 mls/hr IV DIRECT [facility] Rx#:[id number] PITOCin/NS 30 UNIT/500ML 262.167 132.533 30 units In 500 ml @ 4 MILLIUNITS/MIN 4 mls/hr IV Q30M [facility] Rx#:[id number] Oral 240 Intake, Free Water 240 Output: Urine 800 400 Indwelling Catheter 500 Void 300 400 Other: Total, Intake Amount 240 Total, Output Amount 300 400 # Voids Void 1 1 Estimated Blood Loss 200 - Exam Breasts: Present: normal Cardiovascular: Present: Regular rate Lungs: Present: Normal air movement Abdomen: Present: normal appearance, soft, normal bowel sounds Uterus: Present: normal, firm, fundal height below umbilicus Extremities: Present: normal Deep Tendon Reflex Grade: Normal +2 Incision: Present: normal
--- NOTE | 2017-11-20 06:33 | Discharge Summary ---
Providers - Providers Date of Admission: 11/18/17 08:47 Date of discharge: 11/20/17 (pt requests d/c today if possible) Attending physician: GELACIO ONEAL 11/19/17 21:39 Consult to Social Security Assessor [CONS] Routine Reason For Exam: assistance with , SNS Primary care physician: GELACIO ONEAL Hospitalization Reason for admission: induction of labor (IUGR) Delivery: Episiotomy: none Laceration: none Incision: normal Other procedures: none complications: none Discharge diagnosis: IUP at term delivered baby: female Hospital course: uncomplicated vaginal delivery GBS+ adequately treated Condition at discharge: Good Disposition: DC-01 TO HOME OR SELFCARE - Discharge Diagnoses (1) (spontaneous vaginal delivery) Status: Acute Comment: RTO 4 weeks PP care Plan - Provider Discharge Summary Activity: routine, no sex for 6 weeks, no heavy lifting 4 weeks, no strenuous exercise Diet: routine Instructions: routine Additional instructions: [] Smoking cessation referral if applicable(refer to patient education folder for contact #) [] Refer to [facility]'s [facility] Booklet Call your doctor immediately for: * Fever > 100.5 * Heavy vaginal bleeding ( >1 pad per hour) * Severe persistent headache * Shortness of breath * Reddened, hot, painful area to leg or breast * Drainage or odor from incision. * Keep incision clean and dry at all times and follow doctor's instructions regarding bathing/showering - Follow up plan Follow up: GELACIO ONEAL MD [Primary Care Provider] - 12/22/17 (Congratulations! Please call [phone] to schedule your exam in 4 weeks. Call with any concerns.)
[2017-11-20 08:29] LABS: Hematocrit 29.3 % (30.3-42.9); Hemoglobin 9.6 gm/dl (10.1-14.3)
[2017-11-20] MEDS: PRENATAL VITAMIN PO SCH (11:34)
[2017-11-20] MEDS: COLACE PO SCH (11:34)
[2017-11-21] MEDS: MOTRIN PO SCH ×2 (00:18→05:37)
[2017-11-21] MEDS: COLACE PO SCH ×2 (00:18→12:11)
[2017-11-21] MEDS ORDERED: BOOSTRIX IM ONE (06:00)
[2017-11-21 11:07] VITALS: BP 114/54
[2017-11-21] MEDS: PRENATAL VITAMIN PO SCH (12:12)
== END 2017-11-21 11:40 | disposition home or self-care (01) | DRG 774 ==
LOC: LD 08:47 → OB 11-19 21:31
PROVIDERS: ADMIT Obstetrics & Gynecology; ATTEND Obstetrics & Gynecology
PROC: 10E0XZZ Delivery of Products of Conception, External Approach (ICD-10-PCS; principal; 2017-11-19)
PROC: 3E0R3BZ Introduction of Anesthetic Agent into Spinal Canal, Percutaneous Approach (ICD-10-PCS; 2017-11-19)
PROC: 00HU33Z Insertion of Infusion Device into Spinal Canal, Percutaneous Approach (ICD-10-PCS; 2017-11-19)
DX: O99.824 Streptococcus B carrier state complicating childbirth (principal); O98.52 Other viral diseases complicating childbirth; O76 Abnormality in fetal heart rate and rhythm complicating labor and delivery; B00.9 Herpesviral infection, unspecified; O69.1XX0 Labor and delivery complicated by cord around neck, with compression, not applicable or unspecified; O36.5930 Maternal care for other known or suspected poor fetal growth, third trimester, not applicable or unspecified; Z37.0 Single live birth; Z88.8 Allergy status to other drugs, medicaments and biological substances; Z3A.38 38 weeks gestation of pregnancy
CPT/HCPCS: 36415; 59200; 85014; 85018; 85027; 86592; 86850; 86900; 86901; 88307; 99211; G0463; J0290; J2590; J3010; J7120